=== PATIENT | male | born 1945 | race Caucasian/White ===

== ENCOUNTER 2020-01-31 19:07 | Emergency (ER) | payer OTHER ==
[2020-01-31 19:28] VITALS: BP 104/58; PULSE 123; TEMP 98.9; BMI 30.2
--- OUTSIDE RECORDS SUMMARY | 2020-01-31 19:34 | XMS ---
:1945 Author Organization [facility] Care Team Providers Name Role Phone CORIN OBRIENNancy Unavailable Unavailable Re-disclosure Warning The records that you are about to access may contain information from federally- assisted alcohol or drug abuse programs. If such information is present, then the following federally mandated warning applies: This information has been disclosed to you from records protected by federal confidentiality rules (42 CFR part 2). The federal rules prohibit you from making any further disclosure of this information unless further disclosure is expressly permitted by the written consent of the person to whom it pertains or as otherwise permitted by 42 CFR part 2. A general authorization for the release of medical or other information is NOT sufficient for this purpose. The Federal rules restrict any use of the information to criminally investigate or prosecute any alcohol or drug abuse patient.The records that you are about to access may contain highly sensitive health information, the redisclosure of which is protected by Article 27-F of the [facility] Public Health law. If you continue you may haveaccess to information: Regarding HIV / AIDS; Provided by facilities licensed or operated by the [facility] Office of Mental Health; or Provided by the [facility] Office for People With Developmental Disabilities. If such information is present, then the following [facility] mandated warning applies: This information has been disclosed to you from confidential records which are protected by state law. State law prohibits you from making any further disclosure of this information without the specific written consent of the person to whom it pertains, or as otherwise permitted by law. Any unauthorized further disclosure in violation of state law may result in a fine or correction sentence or both. A general authorization for the release of medical or other information is NOT sufficient authorization for further disclosure. Encounters Encounter Providers Location Date Indications Data Source(s ) Outpatient Attender: 11/29/2019 [facility] madeline CORIN OBRIEN 06:00:00 AM Health C are A.Admitter: Nonabox CORIN OBRIEN Outpatient Attender: 10/04/2019 [facility] madeline GIBBSCORIN BOYKIN 06:00:00 AM Health C are A.Admitter: Nonabox CORIN OBRIENReferrer: CORIN OBRIEN Outpatient Attender: 04/05/2019 [facility] madeline CORIN OBRIEN 03:50:00 PM Health C are A.Admitter: Age of Learning CORIN OBRIEN FV (ROV) Regular Office [facility] 01/31/2019 12:00: 00 AM eCW3 ([facility] A28 EDT - 01/31/2019 Health C are) 12:00:00 AM EDT Outpatient [facility] 12/14/2018 12:00:00 AM eCW3 ([facility] A28 EDT - 12/14/2018 Health C are) 12:00:00 AM EDT Outpatient [facility] 12/13/2018 12:00:00 AM eCW3 ([facility] A28 EDT - 12/13/2018 Health C are) 12:00:00 AM EDT Immunizations Vaccine Date Status Description Data Source(s) New in 2011. IIV4 12/13/2018 12:00:00 completed eC W3 ([facility]) New in 2011. IIV4 12/13/2018 12:00:00 completed eC W3 ([facility]) Medications Medication Brand Start Product Dose Route Administrative Pharmacy [facility] Indications Reaction Description Data Name Date Form Instructions Instructions Source(s) Blood Blood 10/03/ active Blood eCW3 Glucose Glucos 2020 Glucose Test ([facility] Test - e Test 12:00: - [facility] - 00 AM Health EDT Care) Blood Blood 10/03/ active Blood eCW3 Glucose Glucos 2020 Glucose Test ([facility] Test - e Test 12:00: - [facility] - AM Health EDT Care) Isopropyl Alcoho 10/03/ active Alcohol P rep eCW3 Alcohol 0.7 l Prep 2020 70 % ([facility] ML/ML 70 % 12:00: [facility] Med[facility] 00 AM Health Pad Alcohol EDT Care) Prep 70 % Blood Blood 10/03/ active Blood eCW3 Glucose Glucos 2019 Glucose Test ([facility] Test - e Test 12:00: - [facility] - AM Health EDT Care) Isopropyl Alcoho 10/03/ active Alcohol P rep eCW3 Alcohol 0.7 l Prep 2020 70 % ([facility] ML/ML 70 % 12:00: [facility] Medicated 00 AM Health Pad Alcohol EDT Care) Prep 70 % Isopropyl Alcoho 10/03/ active Alcohol P rep eCW3 Alcohol 0.7 l Prep 2020 70 % ([facility] ML/ML 70 % 12:00: [facility] Medicated 00 AM Health Pad Alcohol EDT Care) Prep 70 % Omeprazole Omepra 05/13/ active Omeprazo le eCW3 20 MG zole 2020 20 MG ([facility] Delayed 20 MG 12:00: [facility] Release 00 AM Health Oral EDT Care) Capsule Omeprazole Omepra 13/ active Omeprazo le eCW3 20 MG zole 2020 20 MG ([facility] Delayed 20 MG 12:00: [facility] Release 00 AM Health Oral EDT Care) Capsule Omeprazole Omepra 05/13/ active Omeprazo le eCW3 20 MG zole 2020 20 MG ([facility] Delayed 20 MG 12:00: [facility] Release 00 AM Health Oral EDT Care) Capsule Omeprazole Omepra 05/13/ active Omeprazo le eCW3 20 MG zole 2020 20 MG ([facility] Delayed 20 MG 12:00: [facility] Release 00 AM Health Oral EDT Care) Capsule Clotrimazol Clotri 1.0 active Clotrim azole eCW3 e 10 MG/ML mazole 2020 {appl 1 % ([facility] Topical 1 % 12:00: icati [place] Solution 00 AM on} [facility] Clotrimazol EDT Care) e 1 % Clotrimazol Clotri 1.0 active Clotrim azole eCW3 e 10 MG/ML mazole 2020 {appl 1 % ([facility] Topical 1 % 12:00: icati [facility] Solution 00 AM on} Health Clotrimazol EDT Care) e 1 % Simethicone Simeth .0 active Simethi cone eCW3 180 MG Oral icone 2020 {caps 180 MG ([facility] Capsule 180 MG 12:00: ule_a [facility] 00 AM ft_ Health EST meals Care) _and_ at_be dtime _as_n eeded } Simethicone Simeth .0 active Simethi cone eCW3 180 MG Oral icone 2020 {caps 180 MG ([facility] Capsule 180 MG 12:00: ule_a [facility] 00 AM er_ Health EST meals Care) _and_ at_be dtime _as_n eeded } Blood Blood 05/09/ active Blood eCW3 Glucose Glucos 2020 Glucose Test ([facility] Test - e Test 12:00: - [facility] - 00 AM Health EST Care) Blood Blood 05/09/ active Blood eCW3 Glucose Glucos 2020 Glucose Test ([facility] Test - e Test 12:00: - [place] - 00 AM Health EST Care) Blood Blood 05/09/ active Blood eCW3 Glucose Glucos 2020 Glucose Test ([facility] Test - e Test 12:00: - [place] - 00 AM Health EST Care) Blood Blood 05/09/ active Blood eCW3 Glucose Glucos 2020 Glucose Test ([facility] Test - e Test 12:00: - [place] - 00 AM Health EST Care) Blood Blood 05/09/ active Blood eCW3 Glucose Glucos 2020 Glucose Test ([facility] Test - e Test 12:00: - [place] - 00 AM Health EST Care) Blood Blood 05/09/ active Blood eCW3 Glucose Glucos 2020 Glucose Test ([facility] Test - e Test 12:00: - [facility] - 00 AM Health EST Care) Fluticasone Flutic 2.0 active Flutica sone eCW3 Propionate asone 2019 {spra Propionate ( [facility] 50 MCG/ACT Propio 12:00: y_in_ 50 MCG/AC T [facility] vikash 00 AM [facility]_ Health 50 EST nostr Care) MCG/AC il} T Fluticasone Flutic 2.0 active Flutica sone eCW3 Propionate asone 2019 {spra Propionate ( [facility] 50 MCG/ACT Propio 12:00: y_in_ 50 MCG/AC T [facility] vikash 00 AM each_ Health 50 EST nostr Care) MCG/AC il} T Fluticasone Flutic 2.0 active Flutica sone eCW3 Propionate asone 2018 {spra Propionate ( [facility] 50 MCG/ACT Propio 12:00: y_in_ 50 MCG/AC T [facility] vikash 00 AM each_ Health 50 EST nostr Care) MCG/AC il} T Fluticasone Flutic 2.0 active Flutica sone eCW3 Propionate asone 2018 {spra Propionate ( [facility] 50 MCG/ACT Propio 12:00: y_in_ 50 MCG/AC T [facility] vikash 00 AM each_ Health 50 EST nostr Care) MCG/AC il} T Fluticasone Flutic 2.0 active Flutica sone eCW3 Propionate asone 2018 {spra Propionate ( [facility] 50 MCG/ACT Propio 12:00: y_in_ 50 MCG/AC T [facility] v[facility]ash 00 AM each_ Health 50 EST nostr Care) MCG/AC il} T Fluticasone Flutic 2.0 active Flutica sone eCW3 Propionate asone 2018 {spra Propionate ( [facility] 50 MCG/ACT Propio 12:00: y_in_ 50 MCG/AC T [place] vikash 00 AM each_ Health 50 EST nostr Care) MCG/AC il} T Glipizide 5 GlipiZ 03/14/ active GlipiZI DE 5 eCW3 MG Oral JAMES 5 2019 MG ([facility] Tablet MG 12:00: [facility] GlipiZIDE 5 00 AM Health MG EST Care) Glipizide 5 GlipiZ 03/14/ active GlipiZI DE 5 eCW3 MG Oral JAMES 5 2019 MG ([facility] Tablet MG 12:00: [facility] GlipiZIDE 5 00 AM Health MG EST Care) Glipizide 5 GlipiZ 03/14/ active GlipiZI DE 5 eCW3 MG Oral JAMES 5 2019 MG ([facility] Tablet MG 12:00: [facility] GlipiZIDE 5 00 AM Health MG EST Care) Glipizide 5 GlipiZ 03/14/ active GlipiZI DE 5 eCW3 MG Oral JAMES 5 2019 MG ([facility] Tablet MG 12:00: [facility] GlipiZIDE 5 00 AM Health MG EST Care) Glipizide 5 GlipiZ 03/14/ active GlipiZI DE 5 eCW3 MG Oral JAMES 5 2019 MG ([facility] Tablet MG 12:00: [facility] GlipiZIDE 5 00 AM Health MG EST Care) Glipizide 5 GlipiZ 03/14/ active GlipiZI DE 5 eCW3 MG Oral JAMES 5 2019 MG ([facility] Tablet MG 12:00: [facility] GlipiZIDE 5 00 AM Health MG EST Care) Clotrimazol Clotri 1.0 active Clotrim azole eCW3 e 10 MG/ML mazole 2018 {appl 1 % ([facility] Topical 1 % 12:00: icati [place] Cream 00 AM on_to Health Clotrimazol EDT _affe Care) e 1 % cted_ area} Clotrimazol Clotri .0 active Clotrim azole eCW3 e 10 MG/ML mazole 2018 {appl 1 % ([facility] Topical 1 % 12:00: icati [place] Cream 00 AM on_to Health Clotrimazol EDT _affe Care) e 1 % cted_ area} Insurance Providers Payer name Policy type Policy ID Covered Covered constitution party's Policy P nathalie / Coverage constitution party ID relationship to [employer] orm[employer] type morse MEDICAID [id number] Problems, Conditions, and Diagnoses Code Display Name Description Problem Type Effective Data Sour ce(s) Dates K29.60 Reflux gastritis Reflux gastritis Problem 08/29/2019 eC W3 ([facility] 12:00:00 AM [facility] EDT Care) E11.65 Uncontrolled type 2 Uncontrolled type 2 Problem 019 eCW3 ([facility] diabetes mellitus diabetes mellitus 12:00:00 AM [facility] with hyperglycemia with hyperglycemia EST Care) E11.65 Uncontrolled type 2 Uncontrolled type 2 Problem 019 eCW3 ([facility] diabetes mellitus diabetes mellitus 12:00:00 AM [facility] with hyperglycemia with hyperglycemia EST Care) R80.9 Microalbuminuria Microalbuminuria Problem 12/13/2018 eC W3 ([facility] 12:00:00 AM [facility] EDT Care) E66.9 Obesity (BMI Obesity (BMI Problem 12/13/2018 eCW3 ([facility] 30-39.9) 30-39.9) 12:00:00 AM [facility] EDT Care) E66.9 Obesity (BMI Obesity (BMI Problem 12/13/2018 eCW3 ([facility] on 30-39.9) 30-39.9) 12:00:00 AM [facility] EDT Care) R80.9 Microalbuminuria Microalbuminuria Problem 12/13/2018 eC W3 ([facility] 12:00:00 AM [facility] EDT Care) E11.29 Type 2 diabetes Type 2 diabetes Problem 12/13/2018 eCW3 ([place] mellitus with other mellitus with other 12:00:0 0 AM [facility] diabetic kidney diabetic kidney EDT Care ) complication complication R32 Unspecified urinary UNSPECIFIED URINARY Diagnosis 020 [place] incontinence INCONTINENCE 06:00:00 AM [facility] EDT [facility] G80.9 Cerebral palsy, CEREBRAL PALSY, Diagnosis 11/29/2019 [place] unspecified UNSPECIFIED 06:00:00 AM [facility] EDT Care [place] N39.0 Urinary tract URINARY TRACT Diagnosis 11/29/2019 [facility] infection, site not INFECTION, SITE NOT 06:00:0 0 AM [facility] specified SPECIFIED EDT [facility] N28.89 Other specified OTHER SPECIFIED Diagnosis 11/29/2019 [place] disorders of kidney DISORDERS OF KIDNEY 06:00:0 0 [facility] and ureter AND URETER EDT [facility] R35.1 Nocturia NOCTURIA Diagnosis 04/05/2019 [place] 03:50:00 PM [facility] EST [facility] N28.9 Disorder of kidney DISORDER OF KIDNEY Diagnosis 9 [place] and ureter, AND URETER, 03:50:00 PM [facility] unspecified UNSPECIFIED EST [facility] Results ID Date Data Source [id number] 12/28/2019 09:43:00 PM EDT [facility] Name Value Range Interpretation Description Data Sup porting Code Source(s) Document(s ) 2019 Novel [facility] Coronavirus RNA Interpretation Unspecified Specimen Qualitative RUCHI Probe Detection This lab was ordered by [facility]-[id number] and reported by Tonie at [facility]. Procedure Social History Code Duration Value Status Description Data Source(s ) Smoking 12/10/2019 12:00:00 Never Smoker completed [facility] Smoking 10/18/2019 12:00:00 Never Smoker completed Never Smoker e CW3 ([facility]) Smoking 10/18/2019 12:00:00 Never Smoker completed Never Smoker e CW3 ([facility]) Smoking 08/29/2019 12:00:00 Never Smoker completed Never Smoker e CW3 ([facility]) Smoking 06/28/2019 12:00:00 Never Smoker completed Never Smoker e CW3 ([facility]) Smoking 06/28/2019 12:00:00 Never Smoker completed Never Smoker e CW3 ([facility]) Smoking 12/13/2018 12:00:00 Never Smoker completed Never Smoker e CW3 ([facility]) Vital Signs ID Date Data Source UNK Name Value Range Interpretation Code Description Data Source(s) Diastolic blood 65 mm[Hg] 65 mm[Hg] eCW3 ([facility]) Systolic blood 112 mm[Hg] 112 mm[Hg] eCW3 ([facility]) Body temperature 98.0 [degF] 98.0 [degF] eCW3 ( [facility]) Heart rate 20 /min 20 /min eCW3 ([facility]) Body mass index 31.50 kg/m2 31.50 kg/m2 eCW3 ([facility] (BMI) [Ratio] [facility]) Body weight 156 [lb_av] 156 [lb_av] eCW3 ([facility]) Body height 59 [in_i] 59 [in_i] eCW3 ([facility]) Diastolic blood 83 mm[Hg] 83 mm[Hg] eCW3 ([facility]) Systolic blood 134 mm[Hg] 134 mm[Hg] eCW3 ([facility]) Body temperature 97.8 [degF] 97.8 [degF] eCW3 ( [facility]) Heart rate 20 /min 20 /min eCW3 ([facility]) Body mass index 31.50 kg/m2 31.50 kg/m2 eCW3 ([facility] (BMI) [Ratio] [facility]) Body weight 156 [lb_av] 156 [lb_av] eCW3 ([facility]) Body height 59 [in_i] 59 [in_i] eCW3 ([facility]) Patient Treatment Plan of Care Planned Activity Planned Date Details Description Data Source (s) Omeprazole 20 MG Delayed 08/29/2019 12:00:00 eCW3 ([facility] Release Oral Capsule [facility]) Clotrimazole 10 MG/ML 09/26/2018 12:00:00 eCW3 ([facility] Topical Cream [facility])
[2020-01-31] MEDS ORDERED: LACTATED RINGERS SOLUTION 1000 ML INFUS.BAG IV ONE (20:12)
[2020-01-31] MEDS ORDERED: FAMOTIDINE 20 MG/50 ML IVPB 20 MG/50 ML MG IVPB ONE ×2 (20:12→20:50)
[2020-01-31] MEDS ORDERED: ACETAMINOPHEN 1000 MG/100 ML VIAL (NON FORMULARY) IVPB ONE (20:12)
[2020-01-31] MEDS ORDERED: ONDANSETRON 4 MG/2 ML VIAL IVPUSH ONE (20:24)
--- NOTE | 2020-01-31 20:25 | PDOC ---
History of Present Illness - General Chief Complaint: Pain Stated Complaint: ACID REFLUX Time Seen by Provider: 01/31/20 20:11 - History of Present Illness Initial Comments: HPI: 01/31/20 20:32 74 yo M PMH ascending cholangitis, recent valvular surgery 3 weeks ago at [facility], presenting with nausea and vomiting. Estonian speaking only. States that he has been having nausea all day today, with two episodes of vomiting. Further complains of epigastric abdominal pain, now resolved. Has not been able to keep any fluids or food down. Denies CP, SOB, fevers/chills, constipation/diarrhea. ROS: GENERAL/CONSTITUTIONAL: denies fever, chills, diaphoresis, generalized weakness HEAD, EYES, EARS, NOSE AND THROAT: denies rhinorrhea, nasal congestion NEUROLOGIC: denies headache, dizziness, mental status changes CARDIOVASCULAR: denies chest pain, syncope, palpitations, irregular heart rate, lightheadedness, peripheral edema RESPIRATORY: denies cough, shortness of breath, dyspnea with exertion, orthopnea, wheezing, stridor, hemoptysis GASTROINTESTINAL: denies abdominal pain, abdominal distension, nausea, vomiting, diarrhea, constipation, melena, hematochezia GENITOURINARY: denies dysuria, frequency, urgency, hesitancy, hematuria, flank pain, genital pain MUSCULOSKELETAL: denies myalgia, arthralgia, joint swelling, back pain, neck pain SKIN: denies rash, itching PE: Gen: well-developed, well-nourished, NAD Neuro: AAOX4, CN II-XII intact HEENT: atraumatic, normocephalic, dry mucous membranes Neck: trachea midline, supple CV: tachycardic in 110s, regular rhythm, no murmurs, rubs, or gallops. Sternotomy scar. Pulm: CTA b/l, no wheezing Abd: soft, non-distended, non-tender. Surgical scars MSK: full ROM, intact pulses Extr: no edema, no deformities Skin: warm, dry MDM: Concern for ACS v gastritis. - CBC, CMP - EKG, trop - CXR - GI cocktail - reassess 01/31/20 21:16 Hgb 10.4. CXR without acute concern. 01/31/20 22:17 EKG sinus tachycardia at 119 bpm, MA 168, QRS 88, QTc 447. RSR' in AVL. 01/31/20 22:38 Cr 1.6. Mg 1.2, replete with 1 g magnesium. Trop 0.06. Patient feeling well. Will repeat troponin at 2315, admit if uptrending, dc if downtrending. 01/31/20 23:55 Repeat trop stable. 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 Strict return precautions. Zofran to go. Dc for further outpatient management. Past History - Medical History Allergies/Adverse Reactions: Allergies Allergy/AdvReac Type Severity Reaction Status Date / Time No Known Allergies Allergy Verified 06/03/11 16:29 Home Medications: Ambulatory Orders Amox-Tr/K Cl [Augmentin 875Mg] 1 each PO BID@0800,1730 #0 tablet 06/05/11 Metronidazole [Flagyl] 500 mg PO TID #28 tablet 06/05/11 Ondansetron HCl [Zofran] 4 mg PO Q6H PRN #12 tablet 01/31/20 Cardiac Disorders: Yes (valve repair) COPD: No Diabetes: Yes GI Disorders: Yes (acid reflux) Hypercholesterolemia: Yes - Surgical History Cholecystectomy: Yes - Psycho-Social/Smoking History Smoking Status: No Smoking History: Never smoked Have you smoked in the past 12 months: No Number of Cigarettes Smoked Daily: 0 - Substance Abuse Hx (Audit-C & DAST Scrn) How often the patient has a drink containing alcohol: Never Score: In Men: 4 or > Positive; In Women: 3 or > Positive: 0 Screen Result (Pos requires Nsg. Audit-10AR): Negative In the last yr the pt used illegal drug/Rx for NonMed reason: No Score: Yes response is considered Positive: 0 Screen Result (Positive result requires Nsg. DAST-10): Negative *Physical Exam - Vital Signs Last Vital Signs Temp Pulse Resp BP Pulse Ox 98.9 F 123 H 19 104/58 L 97 01/31/20 19:20 01/31/20 19:20 01/31/20 19:20 01/31/20 19:20 01/31/20 19:20 ED Treatment Course - LABORATORY CBC & Chemistry Diagram: 01/31/20 20:15 01/31/20 20:15 - RADIOLOGY Radiology Studies Ordered: Category Date Time Status CHEST PA & LAT [RAD] Stat Radiology 01/31/20 20:11 Ordered Discharge - Discharge Information Problems reviewed: Yes Clinical Impression/Diagnosis: Nausea and vomiting Qualifiers: Vomiting type: unspecified Vomiting Intractability: non-intractable Qualified Code(s): R11.2 - Nausea with vomiting, unspecified Condition: Improved Disposition: HOME - Admission No - Additional Discharge Information Prescriptions: Ondansetron HCl [Zofran] 4 mg PO Q6H PRN #12 tablet PRN Reason: Nausea - Follow up/Referral Referrals: Florencia Arcos FLAG DECORATOR [Primary Care Provider] - - Patient Discharge Instructions Patient Printed Discharge Instructions: DI for Vomiting -- Adult Additional Instructions: You were seen with nausea and vomiting. This improved with medications. Please take your Zofran as needed for nausea. Go to your cardiology appointment on Tuesday. Follow up with your primary care doctor within one week. Return to the ER if you develop new or worsening symptoms. - Post Discharge Activity
[2020-01-31 20:49] LABS: BASO % 0.3 % (0-2.0); HEMATOCRIT 31.2 % (35.4-49); HEMOGLOBIN 10.4 GM/dL (11.7-16.9); LYMPH % 3.8 % (8-40); MCH 27.9 pg (25.7-33.7); MCHC 33.4 g/dl (32.0-35.9); MEAN CELL VOLUME 83.6 fl (80-96); MEAN PLT VOLUME 7.7 fl (7.5-11.1); MONO % 4.1 % (3.8-10.2); NEUT % 91.8 % (42.8-82.8); PLATELET COUNT 155 K/MM3 (134-434); RBC 3.74 M/mm3 (4.00-5.60); RDW 14.1 % (11.9-15.9); WHITE BLOOD COUNT 8.4 K/mm3 (4.0-10.0)
[2020-01-31] MEDS ORDERED: ACETAMINOPHEN INJECTION 100 ML IVPB ONE (20:49)
--- NOTE | 2020-01-31 20:50 | PDOC ---
Attending Attestation - Resident Resident Name: Yair Barr - ED Attending Attestation I have performed the following: I have examined & evaluated the patient, The case was reviewed & discussed with the resident, I agree w/resident's findings & plan, Exceptions are as noted - HPI HPI: 02/01/20 00:24 See resident HPI - Physicial Exam PE: 02/01/20 00:24 Agree with documented exam - Medical Decision Making 02/01/20 00:24 Nausea, vomiting, epigstric px, likely acute gastritis, less likely atypical cp or complication of recent procedure f/u labs, trops, cxr, ekg dispo per clinical course Discharge - Discharge Information Problems reviewed: Yes Clinical Impression/Diagnosis: Nausea and vomiting Qualifiers: Vomiting type: unspecified Vomiting Intractability: non-intractable Qualified Code(s): R11.2 - Nausea with vomiting, unspecified Condition: Improved Disposition: HOME - Additional Discharge Information Prescriptions: Ondansetron HCl [Zofran] 4 mg PO Q6H PRN #12 tablet PRN Reason: Nausea - Follow up/Referral Referrals: Florencia Arcos, MEMORIAL ADVISER [Primary Care Provider] - - Patient Discharge Instructions Patient Printed Discharge Instructions: DI for Vomiting -- Adult Additional Instructions: You were seen with nausea and vomiting. This improved with medications. Please take your Zofran as needed for nausea. Go to your cardiology appointment on Tuesday. Follow up with your primary care doctor within one week. Return to the ER if you develop new or worsening symptoms. - Post Discharge Activity
[2020-01-31 21:24] LABS: ANISOCYTOSIS 0; MACROCYTOSIS 0; PLATELET ESTIMATE DECREASED
[2020-01-31 21:59] LABS: POTASSIUM 4.4 mmol/L (3.5-5.1)
[2020-01-31 22:05] LABS: ALBUMIN 3.8 g/dl (3.4-5.0); BLOOD UREA NITROGEN 14.5 mg/dL (7-18); CALCIUM 8.4 mg/dL (8.5-10.1); CREATININE 1.4 mg/dL (0.55-1.3); MAGNESIUM 1.2 mg/dL (1.8-2.4)
[2020-01-31 22:08] LABS: BILIRUBIN,TOTAL 1.1 mg/dL (0.2-1); TOT PROT 7.3 g/dl (6.4-8.2)
[2020-01-31] MEDS ORDERED: MAGNESIUM SULF 50% (8.12 MEQ/2 ML-1 GM VIAL) IVPB ONE (22:36)
[2020-01-31] MEDS ORDERED: LACTATED RINGERS SOLUTION 1,000 ML/1,000 ML INFUS.BAG IV STA (22:59)
[2020-01-31] MEDS ORDERED: MAGNESIUM SULF 50% (8.12 MEQ/2 ML-1 GM VIAL) ONE (23:05)
--- NOTE | 2020-02-01 13:50 | EKG ---
Test Reason : Blood Pressure : / mmHG Vent. Rate : 112 BPM Atrial Rate : 112 BPM P-R Int : 176 ms QRS Dur : 088 ms QT Int : 346 ms P-R-T Axes : 051 015 064 degrees QTc Int : 472 ms SINUS TACHYCARDIA OTHERWISE NORMAL ECG WHEN COMPARED WITH ECG OF 04-JUN-2011 08:52, NO SIGNIFICANT CHANGE WAS FOUND Confirmed by DUNIA CARPIO MD ([id number]) on 02/01/2020 1:49:39 PM Referred By: Confirmed By:DUNIA CARPIO MD
--- NOTE | 2020-02-04 16:13 | EKG ---
Test Reason : Blood Pressure : / mmHG Vent. Rate : 119 BPM Atrial Rate : 119 BPM P-R Int : 168 ms QRS Dur : 088 ms QT Int : 318 ms P-R-T Axes : 053 042 063 degrees QTc Int : 447 ms SINUS TACHYCARDIA OTHERWISE NORMAL ECG WHEN COMPARED WITH ECG OF 04-JUN-2011 08:52, VENT. RATE HAS INCREASED BY 42 BPM T WAVE VARIATION Confirmed by TWILA MARK MD ([id number]) on 02/04/2020 4:12:43 PM Referred By: Confirmed By:TWILA MARK MD
== END 2020-02-01 00:13 | disposition home or self-care (01) ==
LOC: JER 19:07
PROC: 3E0333Z Introduction of Anti-inflammatory into Peripheral Vein, Percutaneous Approach (ICD-10-PCS; principal; 2020-01-31)
PROC: 3E033GC Introduction of Other Therapeutic Substance into Peripheral Vein, Percutaneous Approach (ICD-10-PCS; 2020-01-31)
DX: R11.2 Nausea with vomiting, unspecified (principal)
CPT/HCPCS: 36415; 71046-TC-FY; 80053; 82550; 83690; 83735; 84484; 85025; 93005; 93010; 99285-25; J0131

== ENCOUNTER 2023-08-25 12:10 | Emergency (ER) | payer OTHER ==
[2023-08-25 12:24] VITALS: BP 147/55; PULSE 84; RESP 20; TEMP 98; BMI 26.4
== END 2023-08-25 13:30 | disposition home or self-care (01) ==
LOC: JERFT 12:10
DX: M54.6 Pain in thoracic spine (principal); L72.0 Epidermal cyst; M62.838 Other muscle spasm
CPT/HCPCS: 99283-25